=== PATIENT | female | born 1935 | race Caucasian/White ===

== ENCOUNTER 2019-10-15 11:28 | Day surgery (SDC) | payer OTHER, BC ==
[~2019-10-15] VITALS: Ht 162.6 cm; Wt 66.7 kg
--- NOTE | ~2019-10-15 | O ---
[facility] [place] [address] OPERATIVE REPORT Name: ASPEN GARZA Room #: 150-5 [facility].#: [id number] Admission: 10/15/19 Attend Phys: Dustin De Jesus MD Discharge: Date of : 37 Report #: [id number] THIS REPORT FOR: cc: Barrington Delgado MD, Bernard O. MD Kneidel, Matthew T. MD ~ CC: Barrington De Jesus DATE OF SERVICE: 10/15/2019 PREOPERATIVE DIAGNOSIS: Right foot first MTP joint malunion. POSTOPERATIVE DIAGNOSIS: Right foot first MTP joint malunion. PROCEDURE: Right foot revision first metatarsophalangeal joint arthrodesis. SURGEON: Dr. Dustin De Jesus. COMMUTATOR PRESSER: Zuleyma Najera. ANESTHESIA: General. ESTIMATED BLOOD LOSS: Minimal. DRAINS: No drains. TOURNIQUET TIME: One hour. DESCRIPTION OF PROCEDURE: The patient brought to the operating room where she was placed under general anesthesia. Once under adequate general anesthesia, her right lower extremity was prepped and draped in sterile manner. The extremity was elevated, exsanguinated, tourniquet placed to 300 mmHg. Dorsal incision of the patient's previous scar was then made and dissected down through the soft tissue to the dorsum of the metatarsophalangeal joint. The prior plate that had been placed was then subsequently removed utilizing the star type screwdriver from the foot tray as well as the small fragment screwdriver. Once complete, the previous plate was then removed. The wound was irrigated copiously. The joint was then exposed and any remaining cartilage was removed from the joint surfaces and good bleeding subchondral bone was achieved and the joint was then fenestrated with a K-wire. Subsequent fixation across the joint was achieved with a Synthes metatarsophalangeal joint arthrodesis plate placed under fluoroscopic guidance, 3 locking screws distal and 3 locking screws proximal to the joint were placed along with a 4.0 cannulated screw compressing across the metatarsophalangeal joint placed under fluoroscopic guidance. [facility] [address] [place] [address] OPERATIVE REPORT Name: ASPEN GARZA Ayad Room #: 150-5 [facility].#: [id number] Admission: 10/15/19 Attend Phys: Dustin De Jesus MD Discharge: Date of : 37 Report #: [id number] Excellent fixation and alignment was achieved. Once complete, the wound was irrigated copiously and closed with 2-0 Vicryl in subcutaneous tissues and jon were used for the skin. Wounds were dressed with Xeroform, 4 x 4s, and sterile soft compressive dressing was placed. Tourniquet was let down at 1 hour. Toes were pink and warm with good capillary refill. There were no complications from the procedure. The patient tolerated the procedure well and went to recovery room. By: 1320 [id number] Dustin De Jesus MD /marco
[~2019-10-15 11:28] MED LIST: ADVIL PM CAPLE1 EACH PO; ASPIRIN EC81 M1 PO; ATIVAN1 MG PO; ATIVAN2 MG PO; ATORVASTATIN CA80 MG PO; BACLOFEN 10MG T10 MG PO; CALCIUM 500 +1 EAC5 PO; GABAPENTIN 100100 MG PO; HYDROCODONE-AP1 EAC6 PO; LEXAPRO 10 MG T10 MG PO; LIORESAL 10 MG10 MG PO; MEDROLDOSEPACK PO; MOBIC7.5 MG PO; NABUMETONE 500500 M1 PO; NAPROSYN500 MG PO; NEURONTIN 300300 M1 PO; PANTOPRAZOLE SO40 M1 PO; PRILOSEC 20 MG20 MG PO; SIMVASTATIN20 MG PO
[2019-10-15 12:09] VITALS: BP 168/86
[2019-10-15] MEDS ORDERED: PERCOCET 5-3251 EACH PO (13:26)
[2019-10-15 14:01] VITALS: BP 168/86
[2019-10-15 14:02] VITALS: BP 168/86
--- NOTE | 2019-10-15 16:47 | EKG ---
[facility] [place] [address] ELECTROCARDIOGRAM REPORT Name: ASPEN GARZA Room #: DEP [facility].#: [id number] Admission: 10/15/19 Attend Phys: Dustin De Jesus MD Discharge: 10/15/19 Date of : 37 Report #: [id number] THIS REPORT FOR: cc: Barrington Delgado MD, Bernard O. MD Lundgren, Craig H. MD [facility] ~ THIS REPORT FOR: //name// [facility] Test Date: 2019-10-15 Test Time: 11:59:46 Pat Name: ASPEN GARZA Department: Room: Gender: F Manager Oncology: pat : 1935 Requested By: Dustin De Jesus Order Number: [id number] MD: Issa Zaragoza Measurements Intervals [place] Rate: 74 P: 47 WA: 163 QRS: -22 QRSD: 100 T: 52 QT: 395 QTc: 439 Interpretive Statements Sinus rhythm Borderline left axis deviation No previous ECG available for comparison Electronically Signed On 10-15-2019 16:47:27 CDT by Issa Zaragoza [email or web address] <ELECTRONICALLY SIGNED> By: Issa Zaragoza MD, [facility] 10/15/19 1647 [id number] Issa Zaragoza MD, [facility] /EPI
== END 2019-10-15 15:30 | disposition home or self-care (01) ==
LOC: OR 11:28 → TBA 11:28 → OR 13:52
PROVIDERS: ATTEND Orthopaedic Surgery Foot and Ankle Surgery
DX: M96.0 Pseudarthrosis after fusion or arthrodesis (principal); E78.5 Hyperlipidemia, unspecified; K21.9 Gastro-esophageal reflux disease without esophagitis; Z20.828 Contact with and (suspected) exposure to other viral communicable diseases; Z98.890 Other specified postprocedural states; Z79.899 Other long term (current) drug therapy; Z85.118 Personal history of other malignant neoplasm of bronchus and lung; Z87.891 Personal history of nicotine dependence; Z95.0 Presence of cardiac pacemaker; Z98.0 Intestinal bypass and anastomosis status; Z98.41 Cataract extraction status, right eye; Z98.42 Cataract extraction status, left eye; Z88.8 Allergy status to other drugs, medicaments and biological substances
CPT/HCPCS: 50010; 50101; 50386; 51122; 56524; 56527; 57091; 57179; 62110; 62900; 70005